=== PATIENT | female | born 1935 | race Caucasian/White ===

== ENCOUNTER 2022-11-11 07:33 | Outpatient (CLI) | payer MEDICARE, SELFPAY ==
--- NOTE | 2022-11-11 07:58 | US_ITS ---
WS: [id number] RENAL ULTRASOUND HISTORY: STAGE 3B CHRONIC KIDNEY DZ COMPARISON: None available. TECHNIQUE: 2-D and color Doppler imaging of the kidney submitted. Right kidney: 10.6 cm x 3.6 cm x 3.7 cm. Kidney is normal size with mild increased echogenicity. No hydronephrosis or mass. Cortex measures 1. 1 cm. Left kidney: 9.5 cm x 4.3 cm x 5.0 cm. Normal size kidney with increased echogenicity. No hydronephrosis or mass. Cortex measures 1.1 cm. Aorta: Mild atherosclerosis. Urinary Bladder: Normal distention. US/US renal BI* [id number] IMPRESSION: 1. Very mild changes of medical renal disease. No hydronephrosis. 2. No significant atrophy.
== END 2022-11-11 07:34 | disposition home or self-care (01) ==
PROVIDERS: PCP Nurse Practitioner Family; Visit Provider Internal Medicine Nephrology
DX: N18.32 Chronic kidney disease, stage 3b (principal); I70.0 Atherosclerosis of aorta
CPT/HCPCS: 76770

== ENCOUNTER 2022-12-16 14:54 | Emergency (ER) | payer MEDICARE, SELFPAY ==
[2022-12-16 15:04] VITALS: BP 188/112; PULSE 60; RESP 17; TEMP 36.3; O2SAT 96; BMI 44.2
--- NOTE | 2022-12-16 15:11 | ECG_ITS ---
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 Measurements Intervals [place] Rate: 60 P: 78 SD: 211 QRS: 20 QRSD: 127 T: -12 QT: 417 QTc: 417 Interpretive Statements ELECTRONIC ATRIAL PACEMAKER MODERATE INTRAVENTRICULAR CONDUCTION DELAY [105+ ms QRS DURATION, 80+ ms Q/S IN V1/V2, NO Q AND 60+ ms R IN I/aVL/V5/V6] ST DEVIATION AND MODERATE T-WAVE ABNORMALITY, CONSIDER LATERAL ISCHEMIA [-0.1+ mV T-WAVE IN I/aVL/V5/V6] INTERPRETATION BASED ON A DEFAULT AGE OF 40 YEARS No previous ECG available for comparison Electronically Signed On 12-17-2022 0:31:24 CDT by Nitin Vicente M.D. [id number] f
--- NOTE | 2022-12-16 15:48 | XRR_ITS ---
PROCEDURE INFORMATION: Exam: XR Chest Exam date and time: 12/16/2022 4:15 PM Age: 86 years old Clinical indication: Pain; Angina pectoris; Additional info: Chest pain TECHNIQUE: Imaging protocol: Radiologic exam of the chest. Views: 1 view. COMPARISON: No relevant prior studies available. FINDINGS: Lungs: There are dependent hypoventilatory changes and mild subsegmental atelectasis at the lung bases. Pleural spaces: Unremarkable. No pleural effusion. No pneumothorax. Heart/Mediastinum: Heart is moderately enlarged. There are dual electrode pacemaker wires projecting over the right atrium right ventricle. There is pulmonary vascular redistribution indicating elevated central venous pressure. Bones/joints: Unremarkable for age. XR/XR chest 1V portable [id number] IMPRESSION: Cardiomegaly with elevated central venous pressure and mild bibasilar subsegmental atelectasis.
[2022-12-16 16:30] VITALS: BP 152/85; PULSE 70; RESP 16; TEMP 36.4; O2SAT 92
[2022-12-16 16:55] LABS: Basophils % 0.5 %; Eosinophils # 0.1 10^3/uL (0.0-0.8); Eosinophils % 2.1 %; Hematocrit 41.8 % (37.0-47.0); Hemoglobin 13.5 g/dL (11.5-15.3); Lymphocytes # 1.9 10^3/uL (0.8-4.8); Lymphocytes % 30.1 %; Mean Corpuscular HGB Conc 32.3 g/dL (30.0-36.0); Mean Corpuscular Hemoglobin 30.9 pg (28.0-34.0); Mean Corpuscular Volume 95.7 fl (81-99); Monocytes # 0.8 10^3/uL (0.2-0.9); Monocytes % 12.9 %; Neutrophils # 3.41 10^3/uL (1.8-7.7); Neutrophils % 54.2 %; Nucleated Red Blood Cells % 0 %; Platelet Count 235 10^3/cmm (130-400); Red Blood Count 4.37 10^6/uL (4.1-5.3); Red Cell Distribution Width 14.8 % (12.1-15.1); White Blood Count 6.3 10^3/uL (4.0-10.0)
[2022-12-16 17:37] LABS: Troponin(5th) Baseline 13 ng/L (0-10)
[2022-12-16 17:40] LABS: Alanine Aminotransferase 10 U/L (0-33); Alkaline Phosphatase 105 U/L (35-105); Anion Gap 13.1 (5-19); Aspartate Amino Transferase 14 U/L (0-32); Blood Urea Nitrogen 21 mg/dL (8-23); Calcium 8.9 mg/dL (8.5-10.5); Carbon Dioxide 28 mmol/L (22-29); Chloride 106 mmol/L (98-107); Globulin 2.9 g/dL (1.3-4.6); Glucose 79 mg/dL (65-115); Osmolality Calculated 298 mOsm/kg (285-295); Potassium 4.1 mmol/L (3.5-5.1); Sodium 143 mmol/L (136-145); Total Bilirubin 0.2 mg/dL (0.15-1.2); Total Protein 6.9 g/dL (6.6-8.7)
--- NOTE | 2022-12-16 17:48 | ECG_ITS ---
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 Measurements Intervals [place] Rate: 64 P: 76 WI: 224 QRS: 53 QRSD: 132 T: 15 QT: 428 QTc: 443 Interpretive Statements ELECTRONIC ATRIAL PACEMAKER with occasional PVCs INTRAVENTRICULAR CONDUCTION DELAY [130+ ms QRS DURATION] Compared to ECG 12/16/2022 15:11:02 T-wave abnormality no longer present Possible ischemia no longer present Electronically Signed On 12-17-2022 0:55:45 CDT by Nitin Vicente M.D. [id number]
[2022-12-16 18:20] LABS: Add Urine Microscopic? NO; Charge for UA Resulting for Rev
[2022-12-16 18:40] LABS: Bilirubin Urine Neg (Negative); Blood Urine Neg (Negative); Glucose Urine UA Norm (Normal); Ketones Urine Negative (Negative); Leukocyte Esterase Urine Negative (Negative); Nitrate Urine Negative (Negative); Protein Urine Neg (Negative); Urine Appearance Clear (CLEAR); Urine Color Light yellow (Yellow); Urobilinogen Urine Norm (Negative); pH Urine 5 (5-7)
[2022-12-16 19:13] LABS: Troponin 5 2HR 12.53 ng/L (0-10); Troponin 5 2HR Delta -0.47 ABS# (0-10)
--- NOTE | 2022-12-16 19:21 | W.ED.CHESTPA ---
HPI - Chest Pain General: Chief Complaint: Chest Pain Stated Complaint: Chest Pains this AM, Dizziness Time Seen by Provider: 12/16/22 19:15 Source: patient Mode of arrival: ambulatory Limitations: no limitations History of Present Illness: 86-year-old female states that she had an episode of chest pain this morning states it was a sharp pain in Her chest lasted roughly 20 to 30 minutes she denies any diaphoresis denies any nausea denies any worsening improving factors. She had no shortness of breath either. She states the pain is since resolved she has been feeling fine since then denies any pains or symptoms currently. Associated symptoms: Deny abdominal pain, dyspnea, fever(s), nausea or vomiting Review of Systems Const: Denies: fever(s), chills, body aches or change in appetite Eyes: Denies: blurry vision or eye discomfort ENMT: Denies: throat pain or dental pain Card: Reports: chest pain Resp: Denies: dyspnea GI: Denies: abdominal pain, nausea, vomiting or diarrhea : Denies: dysuria Musc: Denies: neck pain or back pain Skin/Breast: Denies: rash Neuro: Denies: headache(s) Psych: Denies: depression Itz/Lymph: Denies: easy bruising All/Imm: Denies: urticaria PFSH ED PFSH: Medical History (Updated 12/16/22 @ 19:30 by Claudia Mccarty MD) Hypertension Social History (Updated 12/16/22 @ 19:21 by Claudia Mccarty MD) Substance/Drug Use: never Physical Exam Const: COMMON NORMALS: no acute distress, patient oriented x3 and healthy appearing HENMT: COMMON NORMALS: normocephalic and atraumatic HEAD & SCALP: normocephalic and atraumatic Eye: COMMON NORMALS: Equal, round and reactive pupils present and EOMs intact bilaterally PUPIL: Yes Equal, round and reactive pupils present Neck/C-Spine: COMMON NORMALS: full ROM and supple Chest: COMMONS NORMALS: normal inspection of the chest and normal palpation of entire chest wall Resp: COMMON NORMALS: normal respiratory effort, No retractions, No use of accessory muscles and clear to auscultation bilaterally AUSCULTATION: clear to auscultation bilaterally Cardio: COMMON NORMALS: regular rate, regular rhythm and No murmurs present (Cardio) RATE: regular rate RHYTHM: regular rhythm GI: COMMON NORMALS: Normal to inspection, nondistended, normoactive bowel sounds present, Soft to palpation, non-tender and no masses PALPATION: Yes Soft to palpation Extremity: COMMON NORMALS: normal to inspection and full ROM Neuro: COMMON NORMALS: patient oriented x3, moves all extremities and no focal motor deficits Psych: COMMON NORMALS: mental status grossly normal, Normal thought process present and cooperative THOUGHT PROCESS: Normal thought process present Skin: COMMON NORMALS: no rashes or lesions noted and no wounds GENERAL SKIN EXAM: no rashes or lesions noted Course Vital Signs: Vital signs: Vital Signs Temperature 97.6 F 12/16/22 16:30 Pulse Rate 70 12/16/22 16:30 Respiratory Rate 16 12/16/22 16:30 Blood Pressure 152/85 12/16/22 16:30 Pulse Oximetry 92 12/16/22 16:30 Oxygen Delivery Me thod 12/16/22 16:30 MDM - Chest Pain Medical Decision Making Patient presents for chest pain is since been resolved her troponins EKG x-ray here are all normal she has no complaints this time I feel she stable for discharge informed her she needs to follow-up with her certified medical asst Dr. Laughlin in 3 to 7 days return if worsening she understands agrees to plan. Lab Data 12/16/22 16:43 12/16/22 16:43 Radiology Impressions Chest X-Ray 12/16/22 15:48 IMPRESSION: Cardiomegaly with elevated central venous pressure and mild bibasilar subsegmental atelectasis. Laboratory Results WBC 6.3 10^3/uL (4.0-10.0) 12/16/22 16:43 RBC 4.37 10^6/uL (4.1-5.3) 12/16/22 16:43 Hgb 13.5 g/dL (11.5-15.3) 12/16/22 16:43 Hct 41.8 % (37.0-47.0) 12/16/22 16:43 MCV 95.7 fl (81-99) 12/16/22 16:43 MCH 30.9 pg (28.0-34.0) 12/16/22 16:43 MCHC 32.3 g/dL (30.0-36.0) 12/16/22 16:43 RDW 14.8 % (12.1-15.1) 12/16/22 16:43 Plt Count 235 10^3/cmm (130-400) 12/16/22 16:43 MPV 10.0 fL (7.4-10.4) 12/16/22 16:43 Neut % (Auto) 54.2 % 12/16/22 16:43 Lymph % (Auto) 30.1 % 12/16/22 16:43 [place] % (Auto) 12.9 % 12/16/22 16:43 Eos % (Auto) 2.1 % 12/16/22 16:43 Baso % (Auto) 0.5 % 12/16/22 16:43 Neut # (Auto) 3.41 10^3/uL (1.8-7.7) 12/16/22 16:43 Lymph # (Auto) 1.9 10^3/uL (0.8-4.8) 12/16/22 16:43 [place] # (Auto) 0.8 10^3/uL (0.2-0.9) 12/16/22 16:43 Eos # (Auto) 0.1 10^3/uL (0.0-0.8) 12/16/22 16:43 Baso # (Auto) 0.0 10^3/uL (0.0-0.1) 12/16/22 16:43 Nucleated RBC % (auto) 0 % 12/16/22 16:43 Nucleated RBCs # 0.0 /100WBC 12/16/22 16:43 Sodium 143 mmol/L (136-145) 12/16/22 16:43 Potassium 4.1 mmol/L (3.5-5.1) 12/16/22 16:43 Chloride 106 mmol/L (98-107) 12/16/22 16:43 Carbon Dioxide 28 mmol/L (22-29) 12/16/22 16:43 Anion Gap 13.1 (5-19) 12/16/22 16:43 BUN 21 mg/dL (8-23) 12/16/22 16:43 Creatinine 0.8 mg/dL (0.5-0.9) 12/16/22 16:43 GFR Calculation Not Reportable 12/16/22 16:43 Glucose 79 mg/dL (65-115) 12/16/22 16:43 Calculated Osmolality 298 mOsm/kg (285-295) H 12/16/22 16:43 Calcium 8.9 mg/dL (8.5-10.5) 12/16/22 16:43 Total Bilirubin 0.2 mg/dL (0.15-1.2) 12/16/22 16:43 AST 14 U/L (0-32) 12/16/22 16:43 ALT 10 U/L (0-33) 12/16/22 16:43 Alkaline Phosphatase 105 U/L (35-105) 12/16/22 16:43 Troponin T Baseline 13 ng/L (0-10) H 12/16/22 16:43 Troponin T 120 Minute 12.53 ng/L (0-10) H 12/16/22 18:34 Delta Troponin T -0.47 ABS# (0-10) L 12/16/22 18:34 Total Protein 6.9 g/dL (6.6-8.7) 12/16/22 16:43 Albumin 4.0 g/dL (3.5-5.2) 12/16/22 16:43 Globulin 2.9 g/dL (1.3-4.6) 12/16/22 16:43 Urine Color Light yellow (Yellow) 12/16/22 16:52 Urine Appearance Clear (CLEAR) 12/16/22 16:52 Urine pH 5 (5-7) 12/16/22 16:52 Ur Specific [place] 1.010 (1.005-1.030) 12/16/22 16:52 Urine Protein Neg (Negative) 12/16/22 16:52 Urine Glucose (UA) Norm (Normal) 12/16/22 16:52 Urine Ketones Negative (Negative) 12/16/22 16:52 Urine Blood Neg (Negative) 12/16/22 16:52 Urine Nitrate Negative (Negative) 12/16/22 16:52 Urine Bilirubin Neg (Negative) 12/16/22 16:52 Urine Urobilinogen Norm mg/dL (Negative) 12/16/22 16:52 Ur Leukocyte Esterase Negative (Negative) 12/16/22 16:52 EKG Data EKG 1: I personally reviewed and interpreted this EKG as follows: EKG interpretation date: 12/16/22 EKG interpretation time: 19:23 Interpretation: paced hr [address] or t wave abnormalities qrs 132 qtc 437 Discharge Plan Discharge Patient Disposition: Home Clinical Impression: Chest pain Prescriptions: No Action trazodone 50 mg tablet 25 mg PO DAILY metoprolol tartrate 50 mg tablet 50 mg PO BID paroxetine HCl 10 mg tablet 10 mg PO DAILY omeprazole 20 mg capsule,delayed release(DR/EC) 20 mg PO DAILY levothyroxine 25 mcg capsule 25 mcg PO DAILY sennosides [Evac-U-Gen (sennosides)] 8.6 mg tablet 8.6 mg PO DAILY Eliquis 5 mg tablet 5 mg PO BID furosemide 20 mg tablet 20 mg PO DAILY potassium chloride 10 mEq capsule, extended release 10 meq PO DAILY Discharge Orders: Discharge ED (Routine); Ordered 12/16/22 Ordered By: Claudia Mccarty Referrals: Ani Montalvo FIRE HOSE CURER [Primary Care Provider] - Discharge Diet: Advance as tolerated Discharge Activity: Resume usual activity Patient Instructions: Chest Pain (ED) Coding Level of Care Code ED Cattle Brander for Santiago Barron
[2022-12-16 19:35] VITALS: BP 194/88; PULSE 60; RESP 18; O2SAT 97
== END 2022-12-16 19:46 | disposition home or self-care (01) ==
PROVIDERS: Nurse Practitioner Family; Physician Assistant; Emergency Provider Emergency Medicine; PCP Nurse Practitioner Family
DX: R07.9 Chest pain, unspecified (principal); Z79.01 Long term (current) use of anticoagulants; I10 Essential (primary) hypertension
CPT/HCPCS: 36415; 71045; 80053; 81003; 84484; 85025; 93005; 99285

== ENCOUNTER 2023-05-20 16:15 | Outpatient (CLI) | payer MEDICARE, SELFPAY ==
--- NOTE | 2023-05-20 16:37 | XR_ITS ---
WS: [id number] Exam: XR lumbar spine min 4V [id number] Date/Time of Exam: 05/20/2023 4:43 PM Reason For Exam: Low back pain No fracture or dislocation. Degenerative vacuum discs noted from L3-S1. Spondylosis noted. Osteopenia . Mild levoscoliosis. Marked facet arthropathy from L3-S1. Compression deformity of the lower endplat e of T12 with about 20% loss of vertebral height. Extensive aortoiliac atherosclerosis. IMPRESSION: 1. Moderate degenerative changes and mild levoscoliosis. 2. Osteopenia. 3. Compression deformity of the lower endplate of T12 most likely indicating an insufficiency fractur e. Age is indeterminate. MRI could be helpful for further work-up if thought to be clinically warrant ed.
== END 2023-05-20 16:16 | disposition home or self-care (01) ==
PROVIDERS: PCP Nurse Practitioner Family; Visit Provider Nurse Practitioner Family
DX: M47.817 Spondylosis without myelopathy or radiculopathy, lumbosacral region (principal); M41.9 Scoliosis, unspecified; M85.88 Other specified disorders of bone density and structure, other site
CPT/HCPCS: 72110

== ENCOUNTER → 2023-09-02 10:22 | Outpatient (BNVA) | payer MEDICARE, SELFPAY | PROVIDERS: PCP Nurse Practitioner Family; Visit Provider Nurse Practitioner Family | DX: L57.0 Actinic keratosis (principal); L57.8 Other skin changes due to chronic exposure to nonionizing radiation; D22.5 Melanocytic nevi of trunk; Z85.828 Personal history of other malignant neoplasm of skin | CPT/HCPCS: 17000; 99213 ==

== ENCOUNTER 2023-09-09 13:38 | Inpatient (IN) | payer MEDICARE, SELFPAY ==
[2023-09-09] VITALS (32 sets, daily range): BP systolic 111–175; BP diastolic 62–118; PULSE 39–123; RESP 14–42; TEMP 36.8; O2SAT 80–97; BMI 44.2; BMI 46.1
--- NOTE | 2023-09-09 13:43 | XRR_ITS ---
PROCEDURE INFORMATION: Exam: XR Chest Exam date and time: 09/09/2023 1:49 PM Age: 87 years old Clinical indication: Pain; Angina pectoris; Additional info: Cp TECHNIQUE: Imaging protocol: Radiologic exam of the chest. Views: 1 view. COMPARISON: CR XR chest 1V portable [id number] 12/16/2022 4:15 PM FINDINGS: Lungs: Interstitial congestion right perihilar region. No consolidation. Pleural spaces: Unremarkable. No pleural effusion. No pneumothorax. Heart/Mediastinum: Unremarkable. No cardiomegaly. Bones/joints: Unremarkable. Cardiac device left anterior chest. Similar findings are seen comparing to prior examination XR/XR chest 1V portable [id number] IMPRESSION: 1. Right perihilar interstitial congestion 2. Cardiac device left anterior chest
--- NOTE | 2023-09-09 13:43 | ECG_ITS ---
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 Measurements Intervals [place] Rate: 125 P: 0 FL: 0 QRS: -5 QRSD: 122 T: 155 QT: 297 QTc: 430 Interpretive Statements ATRIAL FIBRILLATION WITH RAPID VENTRICULAR RESPONSE MODERATE VOLTAGE CRITERIA FOR LVH, CONSIDER NORMAL VARIANT POSSIBLE SEPTAL MYOCARDIAL INFARCTION , OF INDETERMINATE AGE ST DEVIATION AND MODERATE T-WAVE ABNORMALITY, CONSIDER LATERAL ISCHEMIA Compared to ECG 12/16/2022 19:23:01 Myocardial infarct finding now present T-wave abnormality now present Possible ischemia now present Ventricular premature complex(es) no longer present Atrial-paced complex(es) or rhythm no longer present Intraventricular conduction delay no longer present Electronically Signed On 09-09-2023 15:20:27 TWISTING MACHINE OPERATOR by Leslie Pak M.D. [id number] f
--- NOTE | 2023-09-09 14:08 | ED_ITS ---
HPI - Chest Pain 2 General: Chief Complaint: Chest Pain Stated Complaint: chest pains Time Seen by Provider: 09/09/23 13:48 Source: patient Mode of arrival: ambulatory Limitations: no limitations History of Present Illness: 87-year-old female states for the last 3 to 4 days he has been having some chest pain along with some mild dyspnea states she also been having weakness has been worsening states today she was not really able to get up and walk because she is feeling so weak she does have a history of A-fib she is in A-fib with RVR here she denies any fevers denies any cough denies any worsening proving factors. Associated symptoms: Reports dyspnea; Deny abdominal pain, fever(s), nausea or vomiting Review of Systems 2 Const: Reports: fatigue; Denies: fever(s), chills, body aches or change in appetite ENMT: Denies: throat pain or dental pain Card: Reports: chest pain and irregular heart rhythm Resp: Reports: dyspnea GI: Denies: abdominal pain, nausea, vomiting or diarrhea Musc: Denies: neck pain or back pain Skin/Breast: Denies: rash Neuro: Denies: headache(s) PFSH ED 2 PFSH: Medical History Hypertension Social History (Updated 12/16/22 @ 19:21 by Claudia Mccarty MD) Substance/Drug Use: never Physical Exam 2 Const: COMMON NORMALS: no acute distress, patient oriented x3 and healthy appearing HENMT: COMMON NORMALS: normocephalic and atraumatic HEAD & SCALP: n ormocephalic and atraumatic Neck/C-Spine: COMMON NORMALS: full ROM and supple Chest: COMMONS NORMALS: normal inspection of the chest and normal palpation of entire chest wall Resp: COMMON NORMALS: normal respiratory effort, No retractions, No use of accessory muscles and clear to auscultation bilaterally AUSCULTATION: clear to auscultation bilaterally Cardio: COMMON NORMALS: No murmurs present (Cardio) RATE: tachycardic R HYTHM: abnormal rhythm irregularly irregular GI: COMMON NORMALS: Normal to inspection, nondistended, normoactive bowel sounds present, Soft to palpation, non-tender and no masses PALPATION: Yes Soft to palpation Extremity: COMMON NORMALS: normal to inspection and full ROM Neuro: COMMON NORMALS: patient oriented x3, moves all extremities and no focal motor deficits Psych: COMMON NORMALS: mental status grossly normal, Normal thought process present and cooperative THOUGHT PROCESS: Normal thought process present Skin: COMMON NORMALS: no rashes or lesions noted and no wounds GENERAL SKIN EXAM: no rashes or lesions noted Course 2 Vital Signs: Vital signs: Vital Signs Temperature 98.2 F 09/09/23 13:39 Pulse Rate 115 H 09/09/23 13:39 Respiratory Rate 18 09/09/23 13:39 Blood Pressure 113/76 09/09/23 13:39 Pulse Oximetry 97 09/09/23 13:39 Oxygen Delivery Me thod Room Air 09/09/23 13:39 MDM - Chest Pain Medical Decision Making Patient presents here with A-fib with RVR patient started on a Cardizem drip her heart rate here has improved blood works normal she had generalized weakness as well I spoke to the hospitalist will admit at this time. Medical Records I reviewed the patient's medical records. Lab Data I reviewed the patient's lab results. 09/09/23 14:00 09/09/23 14:00 Radiology Impressions Chest X-Ray 09/09/23 13:43 IMPRESSION: 1. Right perihilar interstitial congestion 2. Cardiac device left anterior chest Laboratory Results WBC 7.51 10^3/uL (3.29-11.43) 09/09/23 14:00 RBC 3.61 10^6/uL (3.85-5.65) L 09/09/23 14:00 Hgb 9.30 g/dL (11.27-16.99) L 09/09/23 14:00 Hct 30.5 % (36-47) L 09/09/23 14:00 MCV 84.5 fl (85-98) L 09/09/23 14:00 MCH 25.8 pg (27-33) L 09/09/23 14:00 MCHC 30.5 g/dL (30-55) 09/09/23 14:00 RDW 17.4 % (12.1-15.1) H 09/09/23 14:00 Plt Count 274 10^3/cmm (157-399) 09/09/23 14:00 MPV 10.6 fL (7.4-10.4) H 09/09/23 14:00 Neut % (Auto) 70.1 % 09/09/23 14:00 Lymph % (Auto) 16.2 % 09/09/23 14:00 [place] % (Auto) 11.7 % 09/09/23 14:00 Eos % (Auto) 1.1 % 09/09/23 14:00 Baso % (Auto) 0.4 % 09/09/23 14:00 Neut # (Auto) 5.26 10^3/uL (1.8-7.7) 09/09/23 14:00 Lymph # (Auto) 1.2 10^3/uL (0.8-4.8) 09/09/23 14:00 [place] # (Auto) 0.9 10^3/uL (0.2-0.9) 09/09/23 14:00 Eos # (Auto) 0.1 10^3/uL (0.0-0.8) 09/09/23 14:00 Baso # (Auto) 0.0 10^3/uL (0.0-0.1) 09/09/23 14:00 Nucleated RBC % (auto) 0 % 09/09/23 14:00 Nucleated RBCs # 0.0 /100WBC 09/09/23 14:00 PT 18.60 SECONDS (12.1-14.9) H 09/09/23 14:00 INR 1.50 (0.8-1.2) H 09/09/23 14:00 D-Dimer 0.56 ug/mLFEU (0-0.59) 09/09/23 14:00 Sodium 138 mmol/L (136-145) 09/09/23 14:00 Potassium 4.3 mmol/L (3.5-5.1) 09/09/23 14:00 Chloride 104 mmol/L (98-107) 09/09/23 14:00 Carbon Dioxide 25 mmol/L (22-29) 09/09/23 14:00 Anion Gap 13.3 (5-19) 09/09/23 14:00 BUN 13 mg/dL (8-23) 09/09/23 14:00 Creatinine 0.9 mg/dL (0.5-0.9) 09/09/23 14:00 GFR Calculation Not Reportable 09/09/23 14:00 Glucose 104 mg/dL (65-115) 09/09/23 14:00 Calculated Osmolality 286 mOsm/kg (285-295) 09/09/23 14:00 Calcium 8.8 mg/dL (8.5-10.5) 09/09/23 14:00 Total Bilirubin 0.3 mg/dL (0.15-1.2) 09/09/23 14:00 AST 14 U/L (0-32) 09/09/23 14:00 ALT 18 U/L (0-33) 09/09/23 14:00 Alkaline Phosphatase 94 U/L (35-105) 09/09/23 14:00 Troponin T Baseline 23 ng/L (0-10) H 09/09/23 14:00 Troponin T 120 Minute 28.98 ng/L (0-10) H 09/09/23 15:57 Delta Troponin T 5.98 ABS# (0-10) 09/09/23 15:57 Total Protein 6.2 g/dL (6.6-8.7) L 09/09/23 14:00 Albumin 3.6 g/dL (3.5-5.2) 09/09/23 14:00 Globulin 2.6 g/dL (1.3-4.6) 09/09/23 14:00 TSH 3.59 uIU/mL (0.27-4.20) 09/09/23 14:00 Influenza Type A Ag negative (Negative) 09/09/23 14:50 Influenza Type B Ag negative (Negative) 09/09/23 14:50 SARS-CoV-2 Ag (Rapid) negative (Negative) 09/09/23 14:50 All radiology interpretation(s) finalized by discharge EKG Data EKG 1: I personally reviewed and interpreted this EKG as follows: EKG interpretation date: 09/09/23 EKG interpretation time: 13:52 Interpretation: afib hr [address] or t wave abnormalities qrs 122 qtc 371 Critical Care Time 2 Critical Care Time: Critical Care Time: Yes Total Critical Care Time: 40 Attestation: The high probability of a clinically significant, sudden or life threatening deterioration of the patient's cv system(s) required my full and direct attention, intervention and personal management. The critical care time is as shown. This time is in addition to time spent performing any reported procedures but includes the following: [x] Data and vital sign review and interpretation [x] Patient assessment, examination and intervention [x] Documentation [x] Medication orders and management Discharge Plan Discharge Patient Disposition: Admitted As Inpatient Clinical Impression: Atrial fibrillation with RVR, Weakness Condition: Stable Prescriptions: No Action trazodone 50 mg tablet 25 mg PO DAILY metoprolol tartrate 50 mg tablet 50 mg PO BID paroxetine HCl 10 mg tablet 10 mg PO DAILY omeprazole 20 mg capsule,delayed release(DR/EC) 20 mg PO DAILY levothyroxine 25 mcg capsule 25 mcg PO DAILY sennosides [Evac-U-Gen (sennosides)] 8.6 mg tablet 8.6 mg PO DAILY Eliquis 5 mg tablet 5 mg PO BID furosemide 20 mg tablet 20 mg PO DAILY potassium chloride 10 mEq capsule, extended release 10 meq PO DAILY Multi-Vitamins Tablet 1 tab PO QAM clonidine HCl 0.1 mg Tablet 0.1 mg PO PRN PRN (Reason: high blood pressure) fluticasone propionate 50 mcg/actuation spray,suspension 1 spray INTRANASAL DAILY ferrous sulfate 134 mg (27 mg iron) Tablet 134 mg PO DAILY Vitamin D3 50 mcg (2,000 unit) Capsule 50 mcg PO DAILY Referrals: Ani Montalvo NP [Primary Care Provider] - Coding Level of Care Code ED Powerbuilder for Santiago Barron
[2023-09-09 14:18] LABS: Basophils % 0.4 %; Eosinophils # 0.1 10^3/uL (0.0-0.8); Eosinophils % 1.1 %; Hematocrit 30.5 % (36-47); Lymphocytes # 1.2 10^3/uL (0.8-4.8); Lymphocytes % 16.2 %; Mean Corpuscular HGB Conc 30.5 g/dL (30-55); Mean Corpuscular Hemoglobin 25.8 pg (27-33); Mean Corpuscular Volume 84.5 fl (85-98); Mean Platelet Volume 10.6 fL (7.4-10.4); Monocytes # 0.9 10^3/uL (0.2-0.9); Monocytes % 11.7 %; Neutrophils # 5.26 10^3/uL (1.8-7.7); Neutrophils % 70.1 %; Nucleated Red Blood Cells % 0 %; Platelet Count 274 10^3/cmm (157-399); Red Blood Count 3.61 10^6/uL (3.85-5.65); Red Cell Distribution Width 17.4 % (12.1-15.1); White Blood Count 7.51 10^3/uL (3.29-11.43)
--- NOTE | 2023-09-09 14:21 | PC.PHAR ---
PT STATES IS NO LONGER TAKING LOSARTAN 25 MG. 09/09/23
[2023-09-09 14:35] LABS: Alanine Aminotransferase 18 U/L (0-33); Albumin Level 3.6 g/dL (3.5-5.2); Alkaline Phosphatase 94 U/L (35-105); Anion Gap 13.3 (5-19); Aspartate Amino Transferase 14 U/L (0-32); Blood Urea Nitrogen 13 mg/dL (8-23); Calcium 8.8 mg/dL (8.5-10.5); Carbon Dioxide 25 mmol/L (22-29); Chloride 104 mmol/L (98-107); Globulin 2.6 g/dL (1.3-4.6); Glucose 104 mg/dL (65-115); Osmolality Calculated 286 mOsm/kg (285-295); Potassium 4.3 mmol/L (3.5-5.1); Sodium 138 mmol/L (136-145); Total Bilirubin 0.3 mg/dL (0.15-1.2); Total Protein 6.2 g/dL (6.6-8.7)
[2023-09-09 14:36] LABS: Troponin(5th) Baseline 23 ng/L (0-10)
[2023-09-09] MEDS: sodium chloride 0.9% 1,000 ML 999 ML IV (15:05)
[2023-09-09 15:20] LABS: D Dimer 0.56 ug/mLFEU (0-0.59)
[2023-09-09 15:31] LABS: Thyroid Stimulating Hormone 3.59 uIU/mL (0.27-4.20)
[2023-09-09] MEDS: dilTIAZem 100 MG in sodium chloride 0.9% (add-van) 100 ML IV (15:37)
[2023-09-09 15:48] LABS: Influenza A by IFA negative (Negative); Influenza B by IFA negative (Negative); SARS Covid-2 Antigen negative (Negative)
--- NOTE | 2023-09-09 15:54 | ECG_ITS ---
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 Measurements Intervals [place] Rate: 135 P: 0 AK: 0 QRS: -7 QRSD: 120 T: 156 QT: 302 QTc: 453 Interpretive Statements ATRIAL FIBRILLATION WITH RAPID VENTRICULAR RESPONSE MINIMAL VOLTAGE CRITERIA FOR LVH, CONSIDER NORMAL VARIANT [MEETS CRITERIA IN ONE OF: R(aVL), S(V1), R(V5), R(V5/V6)+S(V1)] SEPTAL MYOCARDIAL INFARCTION , OF INDETERMINATE AGE [40+ ms Q WAVE IN V1/V2] ST DEVIATION AND MODERATE T-WAVE ABNORMALITY, CONSIDER LATERAL ISCHEMIA [-0.1+ mV T-WAVE IN I/aVL/V5/V6] Compared to ECG 09/09/2023 13:52:41 No significant changes Electronically Signed On 09-09-2023 22:22:09 SENIOR DATA QUALITY ANALYST by Leslie Pak M.D. [id number]
--- NOTE | 2023-09-09 15:55 | PC.NURSE ---
Dr. Mccarty gave verbal orders to titrate cardizem from 5 to 10.
[2023-09-09 16:30] LABS: Troponin 5 2HR 28.98 ng/L (0-10); Troponin 5 2HR Delta 5.98 ABS# (0-10)
--- NOTE | 2023-09-09 17:02 | P.HP_ITS ---
Providers/Chief Complaint 2 Primary Care Provider: Ani Montalvo NP Chief Complaint: chest pains History of Present Illness Cherise Parker is a 87 year old female with a past medical history of hypertension, atrial fibrillation on Eliquis, hypothyroidism, who presents to [facility] for generalized weakness, elevated heart rate, low blood pressures. Patient tells me that her symptoms started last Thursday, she did not feel well she felt sick, no cough, no fevers no abdominal pain, no diarrhea, no dysuria, she has a she just did not feel well when the symptoms persisted, on Thursday her blood pressures were low her systolic blood pressures were 98 so she stopped taking her medications, her blood pressures did improve, but she continues to feel ill she did feel nauseous at times, but no vomiting, no fevers or chills, or exposure to COVID-19, in the emergency room she was found to have A-fib with RVR currently on a Cardizem drip, currently alert oriented x 3, heart rates in the low 100s, A-fib, she is hypertensive blood pressure 172/113, Review of Systems 2 Eyes: Denies: change in vision Card: Denies: chest pain Resp: Denies: dyspnea GI: Reports: nausea; Denies: abdominal pain : Denies: flank pain or difficulty voiding Neuro: Denies: headache(s) Medications/Allergies Home Medications Medication Instructions Recorded Confirmed Last Taken Type apixaban 5 mg tablet (Eliquis) 5 mg PO BID 08/22/22 09/09/23 09/09/23 History furosemide 20 mg tablet 20 mg PO DAILY 08/22/22 09/09/23 09/09/23 History levothyroxine 25 mcg capsule 25 mcg PO DAILY 08/22/22 09/09/23 09/09/23 History metoprolol tartrate 50 mg tablet 50 mg PO BID 08/22/22 09/09/23 09/09/23 History omeprazole 20 mg capsule,delayed 20 mg PO DAILY 08/22/22 09/09/23 09/09/23 History release paroxetine HCl 10 mg tablet 10 mg PO DAILY 08/22/22 09/09/23 09/09/23 History potassium chloride 10 mEq 10 meq PO DAILY 08/22/22 09/09/23 09/09/23 History capsule,extended release sennosides 8.6 mg tablet 8.6 mg PO DAILY 08/22/22 09/09/23 09/08/23 History (Evac-U-Gen (sennosides)) trazodone 50 mg tablet 25 mg PO DAILY 08/22/22 09/09/23 09/08/23 History cholecalciferol (vitamin D3) 50 50 mcg PO DAILY 09/09/23 09/09/23 09/09/23 History mcg (2,000 unit) capsule (Vitamin D3) clonidine HCl 0.1 mg tablet 0.1 mg PO PRN PRN high blood 09/09/23 09/09/23 Unknown History pressure ferrous sulfate 134 mg (27 mg 134 mg PO DAILY 09/09/23 09/09/23 09/09/23 History iron) tablet fluticasone propionate 50 1 spray intranasal DAILY 09/09/23 09/09/23 09/08/23 History mcg/actuation nasal spray,suspension multivitamin 1 tab PO QAM 09/09/23 09/09/23 09/09/23 History Allergies Allergy/AdvReac Type Severity Reaction Status Date / Time No Known Allergies Allergy Verified 04/17/23 17:09 PFSH Acute 2 PFSH: Medical History (Updated 09/09/23 @ 17:09 by Demetrio Alanis MD) Hypertension Surgical History (Updated 09/09/23 @ 17:06 by Demetrio Alanis MD) History of appendectomy Family History (Updated 09/09/23 @ 17:06 by Demetrio Alanis MD) Mother CAD (coronary artery disease) Social History (Updated 09/09/23 @ 17:05 by Demetrio Alanis MD) Smoking and tobacco/nicotine status: never used tobacco/nicotine Alcohol intake: never Substance/Drug Use: never Vitals/I&O/Wt Last Vital Signs Temp 98.2 F 09/09/23 13:39 Pulse 85 09/09/23 16:56 Resp 33 H 09/09/23 16:56 BP 172/113 09/09/23 16:56 Pulse Ox 92 09/09/23 16:56 O2 Del Method Nasal Cannula 09/09/23 16:43 O2 Flow Rate 2 09/09/23 16:43 09/09/23 09/09/23 09/09/23 06:59 14:59 22:59 Intake Total 6.625 / 6.625 Balance 6.625 / 6.625 Weight last 48 hrs Weight 113.398 kg Physical Exam 2 Const: COMMON NORMALS: no acute distress and patient oriented x3 HENMT: COMMON NORMALS: normocephalic HEAD & SCALP: normocephalic Eye: COMMON NORMALS: Equal, round and reactive pupils present and EOMs intact bilaterally Neck/C-Spine: COMMON NORMALS: full ROM and no lymphadenopathy Resp: COMMON NORMALS: normal respiratory effort, No retractions, No use of accessory muscles and clear to auscultation bilaterally AUSCULTATION: clear to auscultation bilaterally Cardio: COMMON NORMALS: regular rate, regular rhythm, S1 normal heart sound present and S2 normal heart sound present RATE: tachycardic RHYTHM: a bnormal rhythm irregularly irregular HEART SOUNDS: S1 normal heart sound present and S2 normal heart sound present GI: COMMON NORMALS: Normal to inspection, nondistended, normoactive bowel sounds present, Soft to palpation and non-tender Extremity: COMMON NORMALS: no pedal edema Neuro: COMMON NORMALS: patient oriented x3, CN's II-XII intact bilaterally, moves all extremities and no focal motor deficits Psych: COMMON NORMALS: mental status grossly normal Data 09/09/23 14:00 09/09/23 14:00 A&P Assessment and plan (1) Atrial fibrillation with RVR: (2) Generalized weakness: (3) Hypertensive urgency: Plan A-fib with RVR ? TSH within normal limits, check magnesium level, ? Continue Cardizem drip, ? Continue home Eliquis, Hypertensive urgency, ? Continue home blood pressure medications, ? Generalized weakness, ? Awaiting UA Hypothyroidism, continue levothyroxine Full code, ? Eliquis for DVT prophylaxis Attestations 2 Medical Necessity Statement*: Patient requires hospitalization for atrial fibrillation with rapid ventricular response, inpatient, greater than 2 midnights Diagnoses Atrial fibrillation with RVR I48.91 Generalized weakness R53.1 Hypertensive urgency I16.0
[2023-09-09] MEDS: dilTIAZem 5 mg/mL SDV 5 mL 10 MG IVP (17:13)
[2023-09-09 17:31] LABS: Lactic Sepsis W/Reflex 1.8 mmol/L (0.5-2.2)
[2023-09-09 17:34] LABS: Add Urine Microscopic? NO; Charge for UA Resulting for Rev
[2023-09-09 17:38] LABS: NT Pro B Type Natriuretic Pept 7208 pg/mL (0-450); Procalcitonin 0.05 ng/mL (0-0.5)
[2023-09-09 17:38] LABS: Bilirubin Urine Neg (Negative); Blood Urine Neg (Negative); Glucose Urine UA Norm (Normal); Ketones Urine Negative (Negative); Leukocyte Esterase Urine Negative (Negative); Nitrate Urine Negative (Negative); Protein Urine Neg (Negative); Specific Gravity, Urine 1.005 (1.005-1.030); Urine Appearance Clear (CLEAR); Urine Color Yellow (Yellow); Urobilinogen Urine Norm (Negative); pH Urine 5 (5-7)
[2023-09-09 17:49] LABS: Ferritin 33 ng/mL (15-150); Iron 18 ug/dL (37-145); Magnesium 2.1 mg/dL (1.7-2.3); Percent Saturation 5.6 % (20-50); Total Iron Binding Capacity 320 mcg/dl; Unsaturated Iron Binding 302 ug/dL (112-347)
--- NOTE | 2023-09-09 19:43 | ECG_ITS ---
[facility] Test Date: 2023-09-09 Pat Name: Cherise Parker Department: Room: Gender: Female F[employer] Dispenser: : 1935 Requested By: Claudia Mccarty Order Number: [id number] Anat MD: Leslie Pak M.D. Measurements Intervals [place] Rate: 86 P: 0 NH: 0 QRS: 2 QRSD: 125 T: 173 QT: 401 QTc: 481 Interpretive Statements ATRIAL FIBRILLATION WITH ABERRANT CONDUCTION OR VENTRICULAR PREMATURE COMPLEXES SEPTAL MYOCARDIAL INFARCTION , OF INDETERMINATE AGE [40+ ms Q WAVE IN V1/V2] MODERATE T-WAVE ABNORMALITY, CONSIDER LATERAL ISCHEMIA [-0.1+ mV T-WAVE IN I/aVL/V5/V6] MODERATE T-WAVE ABNORMALITY, CONSIDER INFERIOR ISCHEMIA [-0.1+ mV T-WAVE IN II/aVF] Compared to ECG 09/09/2023 15:54:01 Ventricular premature complex(es) now present Aberrant conduction of supraventricular beat(s) now present Myocardial infarct finding still present T-wave abnormality still present Possible ischemia still present Electronically Signed On 09-09-2023 22:21:47 [employer] by Leslie Pak M.D. [id number]
[2023-09-09 21:13] LABS: Troponin 5 6HR 17.16 ng/L (0-10)
[2023-09-09 21:16] LABS: Troponin 5 6HR Delta -5.84 ng/L (0-12)
[2023-09-09] MEDS: dilTIAZem 100 MG in sodium chloride 0.9% (add-van) 100 ML 15 MG IV (21:27)
[2023-09-09 23:13] LABS: Chol HDL Ratio 3.74 mg/dL (0.0-4.40); Cholesterol 131 mg/dL (0-200); HDL Cholesterol 35 mg/dL (60-100); LDL Cholesterol Calculated 81 mg/dL (50-129); LDL HDL Ratio 2.31 RATIO (0.00-3.22); Triglycerides 77 mg/dL (0-150)
[2023-09-09 23:20] LABS: Estmated Average Glucose 105; Hemoglobin A1C 5.3 % (4.0-6.0)
[2023-09-10] VITALS (7 sets, daily range): BP systolic 104–116; BP diastolic 63–92; PULSE 81–103; RESP 18–27; TEMP 36.6–36.7; O2SAT 89–94
[2023-09-10] MEDS: pantoprazole 40 mg SDV IVP ×2 (00:07→22:38)
[2023-09-10] MEDS: apixaban 5 mg Tablet PO ×3 (00:07→22:37)
[2023-09-10] MEDS: metoprolol tartrate 50 mg Tablet PO ×3 (00:07→17:51)
--- NOTE | 2023-09-10 03:38 | PC.NURSE ---
Patient received from ER around 2250. Heart rate was in the 60, cardizem running at 15. Cardizem was titrated down to 10 for 20 minutes then down to 5. Patient heart rate is currently running in the 80.
--- NOTE | 2023-09-10 04:54 | PC.NURSE ---
patient hr elevated to 100's, cardizem turned up to 10. patient O2 stat at 86% on 5L. Respiratory notified to assess.
[2023-09-10 05:07] LABS: Basophils % 0.5 %; Eosinophils # 0.1 10^3/uL (0.0-0.8); Eosinophils % 1.4 %; Hematocrit 29.4 % (36-47); Mean Corpuscular HGB Conc 29.6 g/dL (30-55); Mean Corpuscular Hemoglobin 25.2 pg (27-33); Mean Corpuscular Volume 85.2 fl (85-98); Mean Platelet Volume 10.9 fL (7.4-10.4); Monocytes # 0.8 10^3/uL (0.2-0.9); Monocytes % 11.7 %; Neutrophils # 4.73 10^3/uL (1.8-7.7); Neutrophils % 71.1 %; Nucleated Red Blood Cells % 0 %; Platelet Count 254 10^3/cmm (157-399); Red Blood Count 3.45 10^6/uL (3.85-5.65); Red Cell Distribution Width 17.4 % (12.1-15.1); White Blood Count 6.65 10^3/uL (3.29-11.43)
[2023-09-10] MEDS: trazodone 50 mg Tablet 25 MG PO ×2 (05:16→22:37)
[2023-09-10 05:35] LABS: Alanine Aminotransferase 13 U/L (0-33); Albumin Level 3.1 g/dL (3.5-5.2); Alkaline Phosphatase 90 U/L (35-105); Anion Gap 12.9 (5-19); Aspartate Amino Transferase 12 U/L (0-32); Blood Urea Nitrogen 11 mg/dL (8-23); Calcium 8.8 mg/dL (8.5-10.5); Carbon Dioxide 23 mmol/L (22-29); Chloride 108 mmol/L (98-107); Globulin 2.9 g/dL (1.3-4.6); Glucose 117 mg/dL (65-115); Magnesium 2.1 mg/dL (1.7-2.3); Osmolality Calculated 290 mOsm/kg (285-295); Phosphorus 3.5 mg/dL (2.5-4.5); Potassium 3.9 mmol/L (3.5-5.1); Sodium 140 mmol/L (136-145); Total Bilirubin 0.3 mg/dL (0.15-1.2)
[2023-09-10] MEDS: levothyroxine 50 mcg Tablet 25 MCG PO (06:28)
[2023-09-10] MEDS: PARoxetine 20 mg Tablet 10 MG PO (09:12)
[2023-09-10] MEDS: dilTIAZem 30 mg Tablet PO ×3 (09:12→22:37)
--- NOTE | 2023-09-10 10:03 | PC.CHAP ---
Pastoral Care Encounter/Spiritual Assessment Type of Contact [] Declined speech therapy assistant visit [] Patient/Family/Request visit [] Outpatient visit [] Follow-up visit [] Physician referral [] Code/Alert [x] Routine visit [] Staff referral [] Actively dying [] Patient sleeping [] Family support [] [] Out of room [] Palliative care [] [x] Receiving care in room [] Pre-surgical visit [] Trauma [] Long length of stay [] ICU visit [] Other: Relational/Emotional Strength [x] Patient feels connected with others/family/visitors/staff [] Distress [] Loneliness/isolation [] Abandonment Spirituality of Patient [x] Person of Brit [] Attends Lutheran of their Brit [x] Believes in Prayer [] Reads Bible or Shinto materials [] There are Spiritual issues to be addressed Cadmium Plater Interventions [x] Prayer [x] Active listening [x] Non-anxious presence [x] Spiritual/emotional support [] Crisis/trauma care [x] Spiritual counseling [] Bereavement support [] Provided bereavement packet [] Provided Bible/devotional materials [] Provided toy/stuffed animal, coloring book to patient or family member [] Provided Communion [] Anointing/[place] [] Salvation [x] Completed spiritual assessment [] Other: Impact on Illness or Injury [] Angry [] Fearful [] Anxious [] Often cries [] Exhaustion [] Unable to work [] Unable to attend buddhist [] Unable to walk/stand [] Unable to read [] Unable to drive [] Unable to eat/drink [] Unable to sleep [] Unable to be with family [] Patient intubated [] Other: Summary heart doctor cheking on tests could be the pace maker +2 she has a good attitude not suer about going home Time spent with patient 10 mins
--- NOTE | 2023-09-10 15:59 | P.PN_ITS ---
Subjective 2 Subjective: Patient was seen this morning, has no complaints, no significant weakness, and this morning, remains on Cardizem drip, plans on weaning off, advised patient to ambulate Vitals/I&O/Wt Last Vital Signs Temp 97.8 F 09/10/23 12:00 Pulse 83 09/10/23 12:00 Resp 23 H 09/10/23 12:00 BP 107/66 09/10/23 12:00 Pulse Ox 94 09/10/23 12:00 O2 Del Method Nasal Cannula 09/10/23 12:00 O2 Flow Rate 4 09/10/23 05:03 09/10/23 09/10/23 09/10/23 06:59 14:59 22:59 Intake Total 69.917 / 1154.292 510.083 / 510.083 Balance 69.917 / 1154.292 510.083 / 510.083 Weight last 48 hrs Weight 122.498 kg Weight 118.132 kg Weight 113.398 kg Physical Exam 2 Const: COMMON NORMALS: no acute distress and patient oriented x3 Resp: COMMON NORMALS: normal respiratory effort, No retractions, No use of accessory muscles and clear to auscultation bilaterally AUSCULTATION: clear to auscultation bilaterally Cardio: COMMON NORMALS: S1 normal heart sound present and S2 normal heart sound present RATE: tachycardic RHYTHM: abnormal rhythm HEART SOUNDS: S 1 normal heart sound present and S2 normal heart sound present GI: COMMON NORMALS: Normal to inspection, nondistended, normoactive bowel sounds present and non-tender Extremity: COMMON NORMALS: no pedal edema Neuro: COMMON NORMALS: patient oriented x3 Psych: COMMON NORMALS: mental status grossly normal Data 09/10/23 04:26 09/10/23 04:26 A&P Assessment and plan (1) Atrial fibrillation with RVR: (2) Generalized weakness: (3) Hypertensive urgency: Plan A-fib with RVR ? TSH within normal limits, check magnesium level, ? Continue Cardizem drip, add Cardizem 30 every 6 ? Add metoprolol 50 twice daily ? Continue home Eliquis, Hypertensive urgency, ? Continue home blood pressure medications, ? Generalized weakness, ? Awaiting UA, within normal limits, chest x-ray within normal limits, TSH within normal limits Hypothyroidism, continue levothyroxine Full code, ? Eliquis for DVT prophylaxis Attestations 2 Medical Necessity Statement*: Patient requires hospitalization for A-fib with RVR Diagnoses Atrial fibrillation with RVR I48.91 Generalized weakness R53.1 Hypertensive urgency I16.0
--- NOTE | 2023-09-10 15:59 | USCV_ITS ---
Cherise Parker Age: 87 Gender: F : 1935 Exam Date: 09/10/2023 18:22 Ordering Phys: Demetrio Alanis MD Technologist: SHARONDA [place]am Location: [facility] [place] Indication: atrial fibrillation. History of pacemaker 2020. BP: 116 / 92 HR: 109 Rhythm: Atrial fibrillation Technical Quality: Adequate MEASUREMENTS (Male / Female) Normal Values 2D ECHO LV Diastolic Diameter PLAX 4.8 cm 4.2 - 5.9 / 3.9 - 5.3 cm LV Systolic Diameter PLAX 3.0 cm IVS Diastolic Thickness 1.4 cm 0.6 - 1.0 / 0.6 - 0.9 cm IVS Systolic Thickness 2.1 cm LVPW Diastolic Thickness 1.1 cm 0.6 - 1.0 / 0.6 - 0.9 cm LVPW Systolic Thickness 1.8 cm LVOT Diameter 2.2 cm LV Ejection Fraction 2D Teich 66.1 % LV Ejection Fraction MOD 2C 74.9 % LV Ejection Fraction 2C AL 77.9 % LA Diameter 5.2 cm LA Width 6.0 cm LA Height 7.8 cm RA Width 4.5 cm RA Height 5.5 cm Aorta at Sinotubular Diameter 3.4 cm IVC Diameter 2.7 cm M-MODE Aortic Annulus Diameter 3.6 cm LA Ao Ratio MM 1.4 MV E Point Septal Separation 0.3 cm DOPPLER AV Peak Velocity 123.0 cm/s LVOT Peak Velocity 58.0 cm/s AV Area Cont Eq vti 1.6 cm squared AV Area Cont Eq pk 1.8 cm squared MV Area PHT 4.7 cm squared MV E' Velocity 75.8 cm/s Mitral E to MV E' Ratio 10.9 Mitral E to LV E' Lateral Ratio 9.2 Mitral E to LV E' Septal Ratio 13.4 TR Peak Velocity 286.4 cm/s TR Peak Gradient 32.8 mmHg TV Peak E Velocity 50.0 cm/s Right Atrial Pressure 10.0 mmHg Pulmonary Artery Systolic Pressu 42.8 mmHg PV Peak Velocity 99.0 cm/s RV Acceleration Time 0.1 s RV Ejection Time 0.3 s RV AcT/ET 0.4 FINDINGS Left Ventricle Mild diffuse hypokinesia left ventricular ejection fraction of 45 to 50%. Patient was found to be atrial fibrillation during the study. Segmental wall motion analysis and ejection fraction estimation could be misleading because of the arrhythmia Right Ventricle Possibly the open size and ejection fraction Right Atrium Catheter/pacemaker wire in the right atrial cavity. Mildly increased right atrial size. Left Atrium Moderately increased left atrial size. Mitral Valve Thickened mitral valve. Mild mitral annular calcification. Moderate mitral valve regurgitation. Aortic Valve Thickened aortic valve. Tricuspid Valve Moderate tricuspid valve regurgitation. Pulmonic Valve Mild pulmonary valve regurgitation. Pericardium No pericardial effusion. Aorta Normal aortic annulus size. IVC Dilated IVC with normal respiratory variation. CONCLUSIONS Mild diffuse hypokinesia left ventricular ejection fraction of 45 to 50%. Patient was found to be atrial fibrillation during the study. Segmental wall motion analysis and ejection fraction estimation could be misleading because of the arrhythmia. The RV size is of normal size and possibly of normal ejection fraction. Moderately increased left atrial size. Mildly dilated right atrium. Thickened mitral valve. Mild mitral annular calcification. Thickened aortic valve. Moderate mitral valve regurgitation. Moderate tricuspid valve regurgitation. 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 No similar previous studies are available for comparison Dr Nitin Vicente MD [facility] (Electronically Signed) Final Date: 11 September 2023 09:45 S
[2023-09-10] MEDS: FUROsemide 10 mg/mL SDV 4mL 40 MG IVP (17:51)
[2023-09-11] VITALS: BP 111/66; PULSE 110; RESP 25; TEMP 36.7; O2SAT 92
[2023-09-11] MEDS: dilTIAZem 30 mg Tablet PO ×2 (03:25→08:26)
[2023-09-11 03:59] LABS: Basophils % 0.6 %; Eosinophils # 0.1 10^3/uL (0.0-0.8); Eosinophils % 1.9 %; Hematocrit 27.9 % (36-47); Lymphocytes # 1.4 10^3/uL (0.8-4.8); Lymphocytes % 22.9 %; Mean Corpuscular Hemoglobin 25.4 pg (27-33); Mean Corpuscular Volume 87.5 fl (85-98); Mean Platelet Volume 10.7 fL (7.4-10.4); Monocytes # 0.7 10^3/uL (0.2-0.9); Neutrophils # 3.85 10^3/uL (1.8-7.7); Neutrophils % 62.3 %; Nucleated Red Blood Cells % 0 %; Platelet Count 249 10^3/cmm (157-399); Red Blood Count 3.19 10^6/uL (3.85-5.65); Red Cell Distribution Width 17.3 % (12.1-15.1); White Blood Count 6.19 10^3/uL (3.29-11.43)
[2023-09-11 04:00] VITALS: BP 130/70; PULSE 76; RESP 26; TEMP 37; O2SAT 90
[2023-09-11 04:26] LABS: Alanine Aminotransferase 12 U/L (0-33); Albumin Level 2.9 g/dL (3.5-5.2); Alkaline Phosphatase 82 U/L (35-105); Aspartate Amino Transferase 15 U/L (0-32); Blood Urea Nitrogen 15 mg/dL (8-23); Calcium 8.9 mg/dL (8.5-10.5); Carbon Dioxide 24 mmol/L (22-29); Chloride 107 mmol/L (98-107); Globulin 2.9 g/dL (1.3-4.6); Glucose 112 mg/dL (65-115); Magnesium 2.1 mg/dL (1.7-2.3); Osmolality Calculated 294 mOsm/kg (285-295); Phosphorus 3.8 mg/dL (2.5-4.5); Sodium 141 mmol/L (136-145); Total Bilirubin 0.2 mg/dL (0.15-1.2); Total Protein 5.8 g/dL (6.6-8.7)
[2023-09-11] MEDS: levothyroxine 50 mcg Tablet 25 MCG PO (06:17)
[2023-09-11 08:00] VITALS: BP 140/91; PULSE 77; RESP 27; TEMP 36.5; O2SAT 93
[2023-09-11] MEDS: PARoxetine 20 mg Tablet 10 MG PO (08:26)
[2023-09-11] MEDS: metoprolol tartrate 50 mg Tablet PO (08:26)
[2023-09-11] MEDS: apixaban 5 mg Tablet PO (08:26)
--- NOTE | 2023-09-11 09:17 | PC.SOCIAL ---
IMM Update Pg. 2 of IMM updated and reviewed with patient who verbalized understanding. Copy provided.
[2023-09-11] MEDS: FUROsemide 10 mg/mL SDV 4mL 40 MG IVP (10:44)
[2023-09-11 12:00] VITALS: BP 136/81; PULSE 87; RESP 26; TEMP 36.4
[2023-09-11 13:20] VITALS: O2SAT 91; O2SAT 93
[2023-09-11 13:29] LABS: Basophils % 0.6 %; Eosinophils # 0.1 10^3/uL (0.0-0.8); Eosinophils % 1.8 %; Hematocrit 32.1 % (36-47); Mean Corpuscular HGB Conc 29.6 g/dL (30-55); Mean Corpuscular Hemoglobin 25.6 pg (27-33); Mean Corpuscular Volume 86.5 fl (85-98); Mean Platelet Volume 11.3 fL (7.4-10.4); Monocytes # 0.7 10^3/uL (0.2-0.9); Monocytes % 9.8 %; Neutrophils % 72.5 %; Nucleated Red Blood Cells % 0 %; Platelet Count 306 10^3/cmm (157-399); Red Blood Count 3.71 10^6/uL (3.85-5.65); Red Cell Distribution Width 17.4 % (12.1-15.1); White Blood Count 6.75 10^3/uL (3.29-11.43)
--- NOTE | 2023-09-11 14:52 | P.DS_ITS ---
Discharge Providers Date of Admission: 09/09/23 20:58 Date of Discharge: September 11, 2023 Attending Provider at Admission: Demetrio Alanis MD Attending Provider at Discharge: Demetrio Alanis MD Primary Care Provider: Ani Montalov NP Diagnoses at Discharge Discharge Diagnosis (1) Atrial fibrillation with RVR: Status: Acute (2) Generalized weakness: Status: Acute (3) Hypertensive urgency: Status: Acute Reason for Visit Reason for Visit: chest pains Hospital Course Hospital Course Cherise Parker is a 87 year old female with a past medical history of hypertension, atrial fibrillation on Eliquis, hypothyroidism, who presents to [facility] for generalized weakness, elevated heart rate, low blood pressures. Patient tells me that her symptoms started last Thursday, she did not feel well she felt sick, no cough, no fevers no abdominal pain, no diarrhea, no dysuria, she has a she just did not feel well when the symptoms persisted, on Thursday her blood pressures were low her systolic blood pressures were 98 so she stopped taking her medications, her blood pressures did improve, but she continues to feel ill she did feel nauseous at times, but no vomiting, no fevers or chills, or exposure to COVID-19, in the emergency room she was found to have A-fib with RVR currently on a Cardizem drip, currently alert oriented x 3, heart rates in the low 100s, A-fib, she is hypertensive blood pressure 172/113, This is a 87-year-old female who presents [facility] for A-fib with RVR, manage initially on a Cardizem drip, transition to p.o. Cardizem her home metoprolol, her home Eliquis, discharged with close follow-up with cardiology as outpatient In terms of her echocardiogram results are as below CONCLUSIONS Mild diffuse hypokinesia left ventricular ejection fraction of 45 to 50%. Patient was found to be atrial fibrillation during the study. Segmental wall motion analysis and ejection fraction estimation could be misleading because of the arrhythmia. The RV size is of normal size and possibly of normal ejection fraction. Moderately increased left atrial size. Mildly dilated right atrium. Thickened mitral valve. Mild mitral annular calcification. Thickened aortic valve. Moderate mitral valve regurgitation. Moderate tricuspid valve regurgitation. 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 No similar previous studies are available for comparison -She denies any chest pain, ? Advised her to follow-up with chief credit officer as outpatient for decision of stress testing ? If any chest pain or palpitations to go to emergency room Physical Exam Const: COMMON NORMALS: no acute distress and patient oriented x3 Resp: COMMON NORMALS: normal respiratory effort, No retractions, No use of accessory muscles and clear to auscultation bilaterally AUSCULTATION: clear to auscultation bilaterally Cardio: COMMON NORMALS: regular rate, regular rhythm, S1 normal heart sound present and S2 normal heart sound present RATE: regular rate RHYTHM: regular rhythm HEART SOUNDS: S1 normal heart sound present and S2 normal heart sound present GI: COMMON NORMALS: Normal to inspection, nondistended, normoactive bowel sounds present and non-tender Extremity: COMMON NORMALS: no pedal edema Neuro: COMMON NORMALS: patient oriented x3 Psych: COMMON NORMALS: mental status grossly normal Discharge Data Studies Completed and Pending Completed Studies During Hospitalization Category Date Time Status XR chest 1V portable [id number] Stat Exams 09/09/23 13:43 Completed CV. echo complete* [id number] Routine Ultrasound 09/10/23 15:59 Completed Pending at discharge Category Date Time Status Complete Blood Count w/Auto AM LABS Lab 09/12/23 04:00 Ordered Comprehensive Metabolic Panel AM LABS Lab 09/12/23 04:00 Ordered Magnesium AM LABS Lab 09/12/23 04:00 Ordered Occult Blood Stool [Immunochemical Fecal OCB] Routine Lab 09/09/23 16:54 Uncollected Phosphorus AM LABS Lab 09/12/23 04:00 Ordered Radiology Impressions Chest X-Ray 09/09/23 13:43 IMPRESSION: 1. Right perihilar interstitial congestion 2. Cardiac device left anterior chest Laboratory Results WBC 6.75 10^3/uL (3.29-11.43) 09/11/23 13:22 RBC 3.71 10^6/uL (3.85-5.65) L 09/11/23 13:22 Hgb 9.50 g/dL (11.27-16.99) L 09/11/23 13:22 Hct 32.1 % (36-47) L 09/11/23 13:22 MCV 86.5 fl (85-98) 09/11/23 13:22 MCH 25.6 pg (27-33) L 09/11/23 13:22 MCHC 29.6 g/dL (30-55) L 09/11/23 13:22 RDW 17.4 % (12.1-15.1) H 09/11/23 13:22 Plt Count 306 10^3/cmm (157-399) 09/11/23 13:22 MPV 11.3 fL (7.4-10.4) H 09/11/23 13:22 Neut % (Auto) 72.5 % 09/11/23 13:22 Lymph % (Auto) 15.0 % 09/11/23 13:22 Aurora % (Auto) 9.8 % 09/11/23 13:22 Eos % (Auto) 1.8 % 09/11/23 13:22 Baso % (Auto) 0.6 % 09/11/23 13:22 Neut # (Auto) 4.90 10^3/uL (1.8-7.7) 09/11/23 13:22 Lymph # (Auto) 1.0 10^3/uL (0.8-4.8) 09/11/23 13:22 Aurora # (Auto) 0.7 10^3/uL (0.2-0.9) 09/11/23 13:22 Eos # (Auto) 0.1 10^3/uL (0.0-0.8) 09/11/23 13:22 Baso # (Auto) 0.0 10^3/uL (0.0-0.1) 09/11/23 13:22 Nucleated RBC % (auto) 0 % 09/11/23 13:22 Nucleated RBCs # 0.0 /100WBC 09/11/23 13:22 PT 18.60 SECONDS (12.1-14.9) H 09/09/23 14:00 INR 1.50 (0.8-1.2) H 09/09/23 14:00 D-Dimer 0.56 ug/mLFEU (0-0.59) 09/09/23 14:00 Sodium 141 mmol/L (136-145) 09/11/23 03:25 Potassium 4.0 mmol/L (3.5-5.1) 09/11/23 03:25 Chloride 107 mmol/L (98-107) 09/11/23 03:25 Carbon Dioxide 24 mmol/L (22-29) 09/11/23 03:25 Anion Gap 14.0 (5-19) 09/11/23 03:25 BUN 15 mg/dL (8-23) 09/11/23 03:25 Creatinine 1.0 mg/dL (0.5-0.9) H 09/11/23 03:25 GFR Calculation Not Reportable 09/11/23 03:25 Glucose 112 mg/dL (65-115) 09/11/23 03:25 Estimat Average Glucose 105 09/09/23 14:00 Hemoglobin A1c 5.3 % (4.0-6.0) 09/09/23 14:00 Calculated Osmolality 294 mOsm/kg (285-295) 09/11/23 03:25 Lactic Acid 1.8 mmol/L (0.5-2.2) 09/09/23 14:00 Calcium 8.9 mg/dL (8.5-10.5) 09/11/23 03:25 Phosphorus 3.8 mg/dL (2.5-4.5) 09/11/23 03:25 Magnesium 2.1 mg/dL (1.7-2.3) 09/11/23 03:25 Iron 18 ug/dL (37-145) L 09/09/23 15:57 TIBC 320 mcg/dl 09/09/23 15:57 % Saturation 5.6 % (20-50) L 09/09/23 15:57 Unsat Iron Binding 302 ug/dL (112-347) 09/09/23 15:57 Ferritin 33 ng/mL (15-150) 09/09/23 15:57 Total Bilirubin 0.2 mg/dL (0.15-1.2) 09/11/23 03:25 AST 15 U/L (0-32) 09/11/23 03:25 ALT 12 U/L (0-33) 09/11/23 03:25 Alkaline Phosphatase 82 U/L (35-105) 09/11/23 03:25 Troponin T Baseline 23 ng/L (0-10) H 09/09/23 14:00 Troponin T 120 Minute 28.98 ng/L (0-10) H 09/09/23 15:57 Delta Troponin T 5.98 ABS# (0-10) 09/09/23 15:57 Troponin T Hi Sens 6Hr 17.16 ng/L (0-10) H 09/09/23 20:17 Troponin T Hi Sens 6Hr Delta -5.84 ng/L (0-12) L 09/09/23 20:17 NT-Pro-B Natriuret Pep 7208 pg/mL (0-450) H 09/09/23 15:57 Total Protein 5.8 g/dL (6.6-8.7) L 09/11/23 03:25 Albumin 2.9 g/dL (3.5-5.2) L 09/11/23 03:25 Globulin 2.9 g/dL (1.3-4.6) 09/11/23 03:25 Triglycerides 77 mg/dL (0-150) 09/09/23 20:17 Cholesterol 131 mg/dL (0-200) 09/09/23 20:17 LDL Cholesterol, Calc 81 mg/dL (50-129) 09/09/23 20:17 HDL Cholesterol 35 mg/dL (60-100) L 09/09/23 20:17 LDL/HDL Ratio 2.31 RATIO (0.00-3.22) 09/09/23 20:17 Cholesterol/HDL Ratio 3.74 mg/dL (0.0-4.40) 09/09/23 20:17 Procalcitonin 0.05 ng/mL (0-0.5) 09/09/23 15:57 TSH 3.59 uIU/mL (0.27-4.20) 09/09/23 14:00 Urine Color Yellow (Yellow) 09/09/23 17:13 Urine Appearance Clear (CLEAR) 09/09/23 17:13 Urine pH 5 (5-7) 09/09/23 17:13 Ur Specific Lucile 1.005 (1.005-1.030) 09/09/23 17:13 Urine Protein Neg (Negative) 09/09/23 17:13 Urine Glucose (UA) Norm (Normal) 09/09/23 17:13 Urine Ketones Negative (Negative) 09/09/23 17:13 Urine Blood Neg (Negative) 09/09/23 17:13 Urine Nitrate Negative (Negative) 09/09/23 17:13 Urine Bilirubin Neg (Negative) 09/09/23 17:13 Urine Urobilinogen Norm mg/dL (Negative) 09/09/23 17:13 Ur Leukocyte Esterase Negative (Negative) 09/09/23 17:13 Influenza Type A Ag negative (Negative) 09/09/23 14:50 Influenza Type B Ag negative (Negative) 09/09/23 14:50 SARS-CoV-2 Ag (Rapid) negative (Negative) 09/09/23 14:50 Vitals Last Vital Signs Temp 97.6 F 09/11/23 12:00 Pulse 87 09/11/23 12:00 Resp 26 H 09/11/23 12:00 BP 136/81 09/11/23 12:00 Pulse Ox 91 09/11/23 13:20 O2 Del Method Nasal Cannula 09/11/23 08:00 O2 Flow Rate 4 09/10/23 05:03 Discharge Plan Discharge Patient Disposition: Home Condition: Stable Prescriptions: New diltiazem HCl [Cardizem CD] 120 mg capsule,extended release 24hr 120 mg PO DAILY 30 Days Qty: 30 0RF Continued trazodone 50 mg tablet 25 mg PO DAILY metoprolol tartrate 50 mg tablet 50 mg PO BID paroxetine HCl 10 mg tablet 10 mg PO DAILY omeprazole 20 mg capsule,delayed release(DR/EC) 20 mg PO DAILY levothyroxine 25 mcg capsule 25 mcg PO DAILY sennosides [Evac-U-Gen (sennosides)] 8.6 mg tablet 8.6 mg PO DAILY Eliquis 5 mg tablet 5 mg PO BID potassium chloride 10 mEq capsule, extended release 10 meq PO DAILY Multi-Vitamins Tablet 1 tab PO QAM clonidine HCl 0.1 mg Tablet 0.1 mg PO PRN PRN (Reason: high blood pressure) fluticasone propionate 50 mcg/actuation spray,suspension 1 spray INTRANASAL DAILY ferrous sulfate 134 mg (27 mg iron) Tablet 134 mg PO DAILY Vitamin D3 50 mcg (2,000 unit) Capsule 50 mcg PO DAILY Changed furosemide 20 mg tablet 20 mg PO DAILY PRN (Reason: sob) Qty: 30 3RF Rx Instructions: for sob or edema Discharge Orders: Discharge Order (Routine); Ordered 09/11/23 Ordered By: Demetrio Alanis Referrals: Ani Montalvo NP [Primary Care Provider] - 09/30/23 9:30 am (The office has your information and will be calling you if any sooner appointments open up. Thank you.) Discharge Diet: Cardiac Discharge Activity: Resume usual activity Patient Instructions: Diltiazem (By mouth) (Cardizem, Cardizem CD, Cardizem LA, Cardizem SR), A-fib (Atrial Fibrillation) (DC), Opioid Safety Activity Restrictions/Additional Instructions: if you have any worsening shortness of breath or edema please go to ED Discharge Attestations Time Spent in Discharge Care*: greater than 30 min Quality Metrics Clinical Quality Measures [ No reported AMI, CVA or VTE this stay] Coding Level of Care Code 37586 Total time (in minutes) for Discharge: 45 Diagnoses Atrial fibrillation with RVR I48.91 Generalized weakness R53.1 Hypertensive urgency I16.0
[2023-09-11 16:14] VITALS: BP 136/81; PULSE 87; RESP 26; TEMP 36.4
--- NOTE | 2023-09-11 16:14 | PC.NURSE ---
Discharge Note Patient discharged to home via POV accompanied by family. Discharge instructions reviewed with patient and/or customer contact representative. Mobile pharmacy medications and/or prescriptions provided. Belongings/home medications returned.
== END 2023-09-11 16:23 | disposition home or self-care (01) | DRG 310 ==
LOC: ER 16:35 → CSU 20:58
PROVIDERS: Admitting Provider Family Medicine; Emergency Provider Emergency Medicine; PCP Nurse Practitioner Family; Visit Provider Family Medicine
DX: I48.91 Unspecified atrial fibrillation (principal); Z79.01 Long term (current) use of anticoagulants; I16.0 Hypertensive urgency; I10 Essential (primary) hypertension; E03.9 Hypothyroidism, unspecified; R53.1 Weakness
CPT/HCPCS: 36415; 71045; 80053; 80061; 81003; 82728; 83036; 83540; 83550; 83605; 83735; 83880; 84100; 84145; 84443; 84484; 85025; 85378; 85610; 87426; 87804; 93005; 93306; 94664; 94760; 96365; 96366; 96376; 97161; 97165; 97530; 99285; C9113; J1940; J3490; J7030